=== PATIENT | female | born 2000 | race Caucasian/White ===

== ENCOUNTER 2024-01-05 15:25 | Emergency (ER) | payer OTHER ==
[2024-01-05 15:34] VITALS: BP 126/86; PULSE 100; RESP 18; TEMP 97.6; BMI 41.5
[2024-01-05] MEDS ORDERED: ONDANSETRON *ODT* 4 MG TABLET ONE (16:06)
[2024-01-05] MEDS: ONDANSETRON *ODT* 4 MG TABLET SL ONE (16:12)
[2024-01-05 16:19] LABS: EPI CELLS >36 /uL (0-25.1); HYALINE CASTS 2 /uL (0-3.1); PH,URINE 6.5 (5.0-8.0); URINE APPEARANCE CLEAR; URINE BACTERIA 304 /uL (0-1359); URINE BILIRUBIN NEGATIVE (NEGATIVE); URINE COLOR YELLOW; URINE GLUCOSE (UA) NEGATIVE (NEGATIVE); URINE KETONE 1+ (NEGATIVE); URINE LEUK ESTERASE 2+ (NEGATIVE); URINE NITRITE NEGATIVE (NEGATIVE); URINE PROTEIN 2+ (NEGATIVE); URINE WBC 94 /uL (0-25.8)
[2024-01-05 16:20] LABS: HCG,QUALITATIVE URINE Negative
[2024-01-05] MEDS ORDERED: CEPHALEXIN MONOHYDRATE 500 MG CAPSULE (UD) ONE (16:41)
[2024-01-05] MEDS: CEPHALEXIN MONOHYDRATE 500 MG CAPSULE (UD) PO ONE (16:44)
[2024-01-05 16:50] LABS: URINE RBC 21 /uL (0-23.9)
[2024-01-05 17:41] LABS: BASO % 0.9 % (0-2.0); EOS % 0.2 % (0-4.5); HEMATOCRIT 46.1 % (32.4-45.2); HEMOGLOBIN 15.6 GM/dL (10.7-15.3); LYMPH % 20.7 % (8-40); MCH 28.7 pg (25.7-33.7); MCHC 33.8 g/dl (32.0-36.0); MEAN CELL VOLUME 84.9 fl (80-96); MEAN PLT VOLUME 10.9 fl (7.5-11.1); MONO % 4.1 % (3.8-10.2); NEUT % 74.1 % (42.8-82.8); PLATELET COUNT 293 10^3/uL (134-434); RBC 5.43 M/mm3 (3.60-5.2); RDW 13.2 % (11.6-15.6); WHITE BLOOD COUNT 13.7 K/mm3 (4.0-10.0)
[2024-01-05 18:05] LABS: POTASSIUM 4.5 mmol/L (3.5-5.1)
[2024-01-05 18:09] LABS: ALBUMIN 4.4 g/dl (3.4-5.0); CALCIUM 10.2 mg/dL (8.5-10.1)
[2024-01-05 18:10] LABS: BLOOD UREA NITROGEN 14.7 mg/dL (7-18)
[2024-01-05 18:13] LABS: CREATININE 0.6 mg/dL (0.55-1.3)
[2024-01-05 18:14] LABS: BILIRUBIN,TOTAL 0.5 mg/dL (0.2-1); TOT PROT 8.5 g/dl (6.4-8.2)
== END 2024-01-05 18:38 | disposition home or self-care (01) ==
LOC: JER 15:25
DX: N39.0 Urinary tract infection, site not specified (principal); R11.2 Nausea with vomiting, unspecified; R80.9 Proteinuria, unspecified; Z20.822 Contact with and (suspected) exposure to COVID-19
CPT/HCPCS: 0241U-QW; 36415; 80053; 81003; 84703; 85025; 87086; 99283-25; Q0162

== ENCOUNTER 2024-06-22 19:02 | Emergency (ER) | payer OTHER ==
[2024-06-22 19:07] VITALS: BP 154/76; PULSE 85; RESP 20; TEMP 97.3; BMI 41.5
[2024-06-22] MEDS ORDERED: FAMOTIDINE 20 MG/50 ML IVPB 20 MG/50 ML MG IVPB ONE (20:28)
[2024-06-22] MEDS ORDERED: MAG HYDROX/AL HYDROX/SIMETH 30 ML UNIT-DOSE CUP ONE (20:28)
[2024-06-22 20:29] LABS: BASO % 0.3 % (0-2.0); EOS % 1.1 % (0-4.5); HEMATOCRIT 41.8 % (32.4-45.2); HEMOGLOBIN 14.4 GM/dL (10.7-15.3); MCH 29.2 pg (25.7-33.7); MCHC 34.4 g/dl (32.0-36.0); MEAN CELL VOLUME 84.8 fl (80-96); MEAN PLT VOLUME 10.6 fl (7.5-11.1); MONO % 4.5 % (3.8-10.2); NEUT % 74.1 % (42.8-82.8); PLATELET COUNT 201 10^3/uL (134-434); RBC 4.93 M/mm3 (3.60-5.2); WHITE BLOOD COUNT 10.5 K/mm3 (4.0-10.0)
[2024-06-22] MEDS: MAG HYDROX/AL HYDROX/SIMETH -MYLANTA- ORAL SUSPENSION PO ONE (20:36)
[2024-06-22] MEDS: LACTATED RINGERS SOLUTION 1000 ML INFUS.BAG IV ONE (20:36)
[2024-06-22] MEDS: FAMOTIDINE 20 MG/50 ML IVPB 20 MG/50 ML MG IVPB ONE (20:36)
[2024-06-22 20:59] LABS: POTASSIUM 3.8 mmol/L (3.5-5.1)
[2024-06-22 21:01] LABS: CALCIUM 9.3 mg/dL (8.5-10.1)
[2024-06-22 21:02] LABS: BLOOD UREA NITROGEN 8.6 mg/dL (7-18)
[2024-06-22 21:05] LABS: CREATININE 0.4 mg/dL (0.55-1.3)
[2024-06-22 21:06] LABS: BILIRUBIN,TOTAL 0.6 mg/dL (0.2-1); TOT PROT 7.8 g/dl (6.4-8.2)
[2024-06-22 21:20] LABS: EPI CELLS >36 /uL (0-25.1); HYALINE CASTS 4 /uL (0-3.1); PH,URINE 5.5 (5.0-8.0); URINE APPEARANCE CLOUDY; URINE BACTERIA 931 /uL (0-1359); URINE BILIRUBIN NEGATIVE (NEGATIVE); URINE COLOR YELLOW; URINE GLUCOSE (UA) NEGATIVE (NEGATIVE); URINE KETONE TRACE (NEGATIVE); URINE LEUK ESTERASE 3+ (NEGATIVE); URINE NITRITE NEGATIVE (NEGATIVE); URINE PROTEIN NEGATIVE (NEGATIVE); URINE RBC 6 /uL (0-23.9); URINE WBC 75 /uL (0-25.8)
[2024-06-22 21:45] LABS: HIV INTERPRETATION NEGATIVE (NEGATIVE)
[2024-06-22] MEDS ORDERED: NITROFURANTOIN MACROCRYSTAL 50 MG CAPSULE (FP) ONE (22:12)
[2024-06-22] MEDS: NITROFURANTOIN MACROCRYSTAL 50 MG CAPSULE (FP) PO ONE (22:28)
== END 2024-06-22 22:29 | disposition home or self-care (01) ==
LOC: JER 19:02
PROC: 3E033GC Introduction of Other Therapeutic Substance into Peripheral Vein, Percutaneous Approach (ICD-10-PCS; principal; 2024-06-22)
DX: N39.0 Urinary tract infection, site not specified (principal); R10.13 Epigastric pain; T38.3X5A Adverse effect of insulin and oral hypoglycemic [antidiabetic] drugs, initial encounter; R11.0 Nausea
CPT/HCPCS: 36415; 80053; 81003; 83690; 84703; 85025; 86803; 87389; 99284-25